=== PATIENT | female | born 1985 | race Caucasian/White ===

== ENCOUNTER → 2016-07-30 | Outpatient (REF) | payer BC | LOC: M SFHCWAGY 11:40 | PROVIDERS: ATTEND Nurse Practitioner Family | DX: Z12.4 Encounter for screening for malignant neoplasm of cervix (principal) ==

== ENCOUNTER → 2019-04-10 | Outpatient (REF) | payer BC | LOC: M SFHCWAGY 12:11 | PROVIDERS: ATTEND Nurse Practitioner Family | DX: Z12.4 Encounter for screening for malignant neoplasm of cervix (principal); N76.0 Acute vaginitis | CPT/HCPCS: 87624; G0123 ==